=== PATIENT | male | born 1960 | race Caucasian/White ===

== ENCOUNTER 2023-09-01 12:34 | Observation (INO) ==
[2023-09-01 14:37] LABS: BASOPHILS # (AUTO) 0.1 X10^3/uL (0.0-0.1); BASOPHILS % (AUTO) 0.5 % (0.2-1.0); EOSINOPHILS # (AUTO) 0.3 x10^3/uL (0.0-0.2); EOSINOPHILS % (AUTO) 2.4 % (0.9-2.9); HEMOGLOBIN 11.7 g/dL (13.5-18.0); LYMPHOCYTES # (AUTO) 1.5 X10^3/uL (1.3-2.9); LYMPHOCYTES % (AUTO) 13.6 % (21.0-51.0); MEAN CORPUSCULAR HEMOGLOBIN 31.3 pg (27.0-34.0); MEAN CORPUSCULAR HGB CONC 34.3 g/dL (33.0-35.0); MEAN CORPUSCULAR VOLUME 91.1 fL (80.0-100.0); MEAN PLATELET VOLUME 8.4 fL (7.4-11.0); MONOCYTES # (AUTO) 0.9 x10^3/uL (0.3-0.8); MONOCYTES % (AUTO) 7.6 % (0.0-13.0); NEUTROPHILS # (AUTO) 8.6 x10^3/uL (2.2-4.8); NEUTROPHILS % (AUTO) 75.9 % (42.0-75.0); PLATELET COUNT 325 X10^3/uL (150.0-450.0); RED BLOOD COUNT 3.73 X10^6/uL (4.7-6.0); RED CELL DISTRIBUTION WIDTH 12.6 % (11.6-16.5); WHITE BLOOD COUNT 11.3 X10^3/uL (3.6-10.0)
[2023-09-01 14:53] LABS: ALANINE AMINOTRANSFERASE 15 Units/L (12-78); ALKALINE PHOSPHATASE 116 Units/L (46-116); ASPARTATE AMINO TRANSFERASE 13 Units/L (15-37); BLOOD UREA NITROGEN 12 mg/dL (7-18); CALCIUM 8.8 mg/dL (8.5-10.1); CHLORIDE 100 mmol/L (98-107); COR CA(FOR HYPOALB) 9.6 mg/dL (8.5-10.1); CREATININE 1.19 mg/dL (0.70-1.30); GLUCOSE 93 mg/dL (65-99); HEMOGLOBIN A1C 7.2 %; POTASSIUM 4.6 mmol/L (3.5-5.1); SODIUM 137 mmol/L (136-145); TOTAL PROTEIN 7.1 g/dL (6.4-8.2); eGFR NON BLACK RACES > 60 (>60)
[2023-09-01] MEDS: LR 1,000 ML IV 1,000 ML IV SCH (15:11)
[2023-09-01] MEDS: VANCOMYCIN IV *PREMIX 1 G/200 ML BAG 1 G/200 ML PIGGYBACK IV ONE (15:12)
[2023-09-01] MEDS: ZOSYN VIAL 3.375 GRAMS 3.375 G in NS 100 ML IV 100 ML IV SCH (15:20)
[2023-09-01 17:04] VITALS: BMI 23.3
[2023-09-01] MEDS: CORTEF PO SCH (18:31)
[2023-09-01] MEDS: VANCOMYCIN IV *PREMIX 1 G/200 ML BAG 1 G/200 ML PIGGYBACK IV SCH (21:18)
[2023-09-01] MEDS: HIBICLENS WASH EXT ONE (21:21)
--- NOTE | 2023-09-01 22:29 | EKG ---
Test Reason : surgery Blood Pressure : */* mmHG Vent. Rate : 64 BPM Atrial Rate : 64 BPM P-R Int : 206 ms QRS Dur : 74 ms QT Int : 402 ms P-R-T Axes : 62 45 53 degrees QTc Int : 414 ms Normal sinus rhythm with first degree AV block o/w normal No previous ECGs available Confirmed by Anson Holder MD ([id number]) on 09/02/2023 7:32:13 AM Referred By: Confirmed By: Anson Holder MD
[2023-09-01] MEDS: NS 250 ML IV 25 ML IV PRN (22:33)
[2023-09-02 05:49] LABS: BASOPHILS # (AUTO) 0.1 X10^3/uL (0.0-0.1); BASOPHILS % (AUTO) 0.8 % (0.2-1.0); EOSINOPHILS # (AUTO) 0.3 x10^3/uL (0.0-0.2); EOSINOPHILS % (AUTO) 4.6 % (0.9-2.9); HEMATOCRIT 30.1 % (42.0-54.0); HEMOGLOBIN 10.5 g/dL (13.5-18.0); LYMPHOCYTES # (AUTO) 1.4 X10^3/uL (1.3-2.9); MEAN CORPUSCULAR HEMOGLOBIN 31.5 pg (27.0-34.0); MEAN CORPUSCULAR HGB CONC 34.8 g/dL (33.0-35.0); MEAN CORPUSCULAR VOLUME 90.6 fL (80.0-100.0); MEAN PLATELET VOLUME 8.4 fL (7.4-11.0); MONOCYTES # (AUTO) 0.7 x10^3/uL (0.3-0.8); MONOCYTES % (AUTO) 9.2 % (0.0-13.0); NEUTROPHILS % (AUTO) 66.4 % (42.0-75.0); PLATELET COUNT 276 X10^3/uL (150.0-450.0); RED BLOOD COUNT 3.32 X10^6/uL (4.7-6.0); RED CELL DISTRIBUTION WIDTH 12.3 % (11.6-16.5); WHITE BLOOD COUNT 7.5 X10^3/uL (3.6-10.0)
[2023-09-02 05:54] LABS: ALANINE AMINOTRANSFERASE 12 Units/L (12-78); ALBUMIN 2.3 g/dL (3.4-5.0); ALKALINE PHOSPHATASE 97 Units/L (46-116); ASPARTATE AMINO TRANSFERASE 11 Units/L (15-37); BLOOD UREA NITROGEN 10 mg/dL (7-18); CALCIUM 8.2 mg/dL (8.5-10.1); CARBON DIOXIDE 29.6 mmol/L (21-32); CHLORIDE 103 mmol/L (98-107); COR CA(FOR HYPOALB) 9.6 mg/dL (8.5-10.1); COR NA(FOR HYPERGLY) 140 mmol/L (136-145); CREATININE 1.13 mg/dL (0.70-1.30); GLUCOSE 140 mg/dL (65-99); POTASSIUM 4.3 mmol/L (3.5-5.1); SODIUM 139 mmol/L (136-145); eGFR NON BLACK RACES > 60 (>60)
--- NOTE | 2023-09-02 06:57 | VAS ---
EXAM:LOWER EXT ARTERIALHISTORY:ULCER RT FOOT, PVD; -COMPARISON:None.TECHNIQUE:Multiple lópez scale and color flow Doppler images of the right and left lower extremity arterial system were obtained. Interrogation of the common femoral artery, superficial femoral artery, popliteal artery, and tibial arteries was performed.FINDINGS:Multiphasic waveforms predominate throughout the left lower extremity. In the right lower extremity biphasic waveforms are seen above the knee transitioning to monophasic waveforms [id number]. Monophasic waveforms are more typically associated with peripheral vascular diseaseRight extremity:Common femoral : 156 cm/sSuperficial femoral proximal: 113 cm/sSuperficial femoral mid: 111 cm/sSuperficial femoral distal : 112 cm/sPopliteal : 113 cm/sPosterior tibial : 99-131 cm/sAnterior tibial/dorsalis pedis: 86 cm/sLeft extremity:Common femoral : 88 cm/sSuperficial femoral proximal: 35 cm/sSuperficial femoral mid: 98 cm/sSuperficial femoral distal :93 cm/sPopliteal : 84 cm/sPosterior tibial : 72-91 cm/sAnterior tibial/dorsalis pedis: 53 cm/sIMPRESSION:Abnormal monophasic waveforms of the right lower leg typical of peripheral vascular disease. No occluded segments or flow-limiting high-grade stenosis identified with respect to the right leg. Mildly elevated flow velocities of the common femoral artery may indicate regional stenosis of moderate severity.Multiphasic waveform pattern of the left lower extremity with no flow-limiting stenosis or occluded segments identifiedTHIS IS AN ELECTRONICALLY VERIFIED FINAL REPORT09/02/2023 6:54 AM - Electronically signed by Jesus Hernandez MD
--- NOTE | 2023-09-02 07:17 | RAD ---
EXAM:Portable AP chestHISTORY:Preop diabetic footCOMPARISON:NoneFINDINGS:Normal-appea ring heart, lungs, mediastinum and pleural spaces.IMPRESSION:No acute or significant abnormality identified.THIS IS AN ELECTRONICALLY VERIFIED FINAL REPORT09/02/2023 7:14 AM - Electronically signed by Victor M Reinoso MD
--- NOTE | 2023-09-02 07:36 | DR.CONSULT ---
CONSULT Consultation for Day of: Date: 09/02/23 Chief Complaint Chief Complaint: Infection, Right Foot Allergies Allergies Allergy/AdvReac Type Severity Reaction Status Date / Time Quinolones Allergy Verified 09/01/23 14:16 Sulfa (Sulfonamide Allergy Verified 09/01/23 14:16 Antibiotics) [SULFA] History of Present Illness History of Present Illness: Mr. Cummings is a 62 year old M with past medical history of DM, Charcot, and history of partial 5th ray resection to the right foot. He presented to Dr. Carlson's clinic yesterday with history of stepping on a foreign body and subsequently noted increased redness about the right foot. Upon examination there was fluctuance about the red foot concerning for underlying abscess. He was instructed to head to [facility] for admission, IV fluids, antibiotics, and surgical debridement. Past Medical History Past Medical History: Diabetes Additional Medical History: History of Charcot Past Surgical History Additional Surgical History: History of partial fifth ray resection, right foot Social History Does patient currently use any type of tobacco product: No Type of Tobacco Use: Cigars Alcohol Use: None Drug Use: None Medications Home Medications: Quinolones Allergy (Verified 09/01/23 14:16) Sulfa (Sulfonamide Antibiotics) [SULFA] Allergy (Verified 09/01/23 14:16) CONTINUE taking the following medications atorvastatin 10 mg tablet 10 mg PO QDAY 09/01/23 [History] citalopram 20 mg tablet 20 mg PO QDAY 09/01/23 [History] citalopram 20 mg tablet 20 mg PO QDAY 09/01/23 [History] clindamycin HCl 300 mg capsule 300 mg PO Q6HR 09/01/23 [History] dorzolamide 22.3 mg-timolol 6.8 mg/mL eye drops 1 drp ophthalmic (eye) BID 09/01/23 [History] insulin degludec 200 unit/mL (3 mL) subcutaneous pen (Tresiba FlexTouch U-200 insulin) 28 unit subcut HS 09/01/23 [History] latanoprost 0.005 % eye drops 1 drp ophthalmic (eye) HS 09/01/23 [History] levothyroxine 50 mcg tablet 50 mcg PO QDAY 09/01/23 [History] pregabalin 75 mg capsule 75 mg PO TID 09/01/23 [History] Review of Systems Constitutional: See HPI Musculoskeletal: See HPI Skin: See HPI Physical Exam Vital Signs: Vital Signs Temperature 97.9 F Temperature 98.6 F Pulse Rate 56 Pulse Rate 67 Pulse Rate 58 Pulse Rate 53 Pulse Rate 57 Pulse Rate 63 Pulse Rate 63 Respiratory Rate 22 Respiratory Rate 18 Respiratory Rate 17 Respiratory Rate 18 Respiratory Rate 17 Respiratory Rate 14 Respiratory Rate 18 Blood Pressure 107/59 Blood Pressure 117/64 Blood Pressure 105/58 Blood Pressure 95/56 Blood Pressure 105/56 Blood Pressure 113/60 Blood Pressure 114/58 O2 Sat by Pulse Oximetry 99 O2 Sat by Pulse Oximetry 100 O2 Sat by Pulse Oximetry 97 O2 Sat by Pulse Oximetry 98 O2 Sat by Pulse Oximetry 98 O2 Sat by Pulse Oximetry 98 O2 Sat by Pulse Oximetry 99 Musculoskeletal: Right (Examination shows redness about the lateral side of the foot. Previous puncture site on plantar 4th metatarsal head. Fluctuance is noted about the lateral foot concerning for underlying abscess. Pulses are intact. CFT WNL to all digits. Sensation is decreased. ) Plan (1) PAD (peripheral artery disease): Status: Acute Narrative Support Text: Consultation to Dr. Bowers. Reviewed arterial study. Likely order CT angio. (2) Diabetes: Status: Acute Narrative Support Text: Managed by primary. (3) Abscess of right foot: Status: Acute Narrative Support Text: - NPO - Plan for OR this am for incision and drainage of the right foot.
--- NOTE | 2023-09-02 07:46 | CT ---
EXAM: LOWER EXT W/O HISTORY: DIABETIC FOOT; RIGHT ANKLE COMPARISON: None available TECHNIQUE: Multiple CT axial images of the right foot and ankle were obtained without administration of IV contr ast. Sagittal and coronal reformats were performed and reviewed. Dose reduction techniques including Automated Exposure Control (AEC) and adjustment of mA and kV were utilized. FINDINGS: Diffuse ankle and foot subcutaneous edema may represent cellulitis. No subcutaneous gas. Vascular c alcifications are noted. No visible soft tissue ulceration site. Previous resection of 5th ray to t he level of the 5th metatarsal mid shaft. No evidence for an acute fracture. There is chronic fract ure changes involving the proximal 2nd through 4th metatarsal shafts with remodeling and remodeling a t the 1st tarsometatarsal articulation with old fracture deformity evident. Small calcaneal spurs. Degenerative changes at the tarsometatarsal articulations. No aggressive osteolysis to suggest osteo myelitis. Dorsal osteophytes at the talonavicular articulation. No evidence for significant ankle j oint effusion. Visualized tendons grossly unremarkable not well assessed. Charcot joint like change s of the tarsometatarsal articulations. IMPRESSION: Diffuse ankle and foot subcutaneous edema may represent cellulitis in the appropriate setting. No ev idence for osteomyelitis, no visible ulceration or subcutaneous gas. Chronic Charcot like changes at the midfoot with old healed metatarsal fractures and previous resection of the 5th metatarsal eviden t.. THIS IS AN ELECTRONICALLY VERIFIED FINAL REPORT 09/02/2023 7:42 AM - Electronically signed by Albino Romano MD
--- NOTE | 2023-09-02 07:58 | CT ---
EXAM:LOWER EXT W/OHISTORY:DIABETIC FOOT; RIGHT FOOTCOMPARISON:None available.TECHNIQUE:Multiple CT axial images of the right foot and ankle were obtained without administration of IV contrast. Sagittal and coronal reformats were performed and reviewed. Dose reduction techniques including Automated Exposure Control (AEC) and adjustment of mA and kV were utilized.FINDINGS:Diffuse ankle and foot subcutaneous edema may represent cellulitis. No subcutaneous gas. Vascular calcifications are noted. No visible soft tissue ulceration site. Previous resection of 5th ray to the level of the 5th metatarsal mid shaft. No evidence for an acute fracture. There is chronic fracture changes involving the proximal 2nd through 4th metatarsal shafts with remodeling and remodeling at the 1st tarsometatarsal articulation with old fracture deformity evident. Small calcaneal spurs. Degenerative changes at the tarsometatarsal articulations. No aggressive osteolysis to suggest osteomyelitis. Dorsal osteophytes at the talonavicular articulation. No evidence for significant ankle joint effusion. Visualized tendons grossly unremarkable not well assessed. Charcot joint like changes of the tarsometatarsal articulations.IMPRESSION:Diffuse ankle and foot subcutaneous edema may represent cellulitis in the appropriate setting. No evidence for osteomyelitis, no visible ulceration or subcutaneous gas. Chronic Charcot like changes at the midfoot with old healed metatarsal fractures and previous resection of the 5th metatarsal evident.THIS IS AN ELECTRONICALLY VERIFIED FINAL REPORT09/02/2023 7:54 AM - Electronically signed by Albino Romano MD
[2023-09-02] MEDS ORDERED: TRESIBA U-100 INSULIN SC SCH (09:00)
[2023-09-02] MEDS: D5 LR 1,000 ML 1,000 ML IV SCH (09:15)
[2023-09-02] MEDS: PHARMACY CONSULT - VANCOMYCIN XX SCH (10:39)
[2023-09-02] MEDS: D50W ABBOJECT SYR IV ONE (10:39)
[2023-09-02] MEDS: ZOSYN VIAL 3.375 GRAMS 3.375 G in NS 100 ML IV 100 ML IV SCH (10:39)
[2023-09-02] MEDS: CORTEF ONE (10:39)
[2023-09-02] MEDS: CORTEF PO SCH (10:40)
[2023-09-02] MEDS: LEXAPRO PO SCH (10:40)
[2023-09-02] MEDS: REGLAN INJ 10 MG VIAL ONE (11:16)
[2023-09-02] MEDS: ZOFRAN INJ 4 MG VIAL ONE (11:16)
[2023-09-02] MEDS ORDERED: KETAMINE HCL ONE (11:16)
[2023-09-02] MEDS ORDERED: XYLOCAINE 2 % (PLAIN) ONE (11:16)
[2023-09-02] MEDS: VERSED ONE (11:16)
[2023-09-02] MEDS: BETADINE SOLN ONE (11:16)
[2023-09-02] MEDS: FENTANYL VIAL INJ 100 mcg ONE (11:16)
[2023-09-02] MEDS: DIPRIVAN VIAL 20 ML ONE (11:26)
[2023-09-02] MEDS: TOBRAMYCIN SULFATE ONE (11:29)
[2023-09-02] MEDS: VANCOMYCIN HCL ONE (11:29)
[2023-09-02] MEDS: MARCAINE 0.25% INJ ONE (11:29)
[2023-09-02] MEDS: TRESIBA U-100 INSULIN SC SCH (11:47)
[2023-09-02] MEDS: PHARMACY COMMENT IV ONE (13:08)
[2023-09-02] MEDS: EPHEDRINE SULFATE INJ ONE (13:08)
[2023-09-02] MEDS ORDERED: OMNIPAQUE 350 mg/mL 50 mL BTL 50 ML ONE ×2 (13:47→14:21)
[2023-09-02] MEDS ORDERED: OMNIPAQUE 350 mg/mL 100 mL BTL 100 ML ONE ×2 (13:47→14:21)
[2023-09-02] MEDS: LR 1,000 ML IV 1,000 ML IV SCH (15:30)
[2023-09-02] MEDS ORDERED: NS 250 ML IV 250 ML IV ONE (16:46)
[2023-09-02] MEDS ORDERED: CORTEF ONE (18:18)
--- NOTE | 2023-09-02 22:59 | CT ---
PROCEDURE: CTA bilateral lower extremity iliofemoral runoff.HISTORY: Diabetes.TECHNIQUE: Axial images were performed through the chest with the administration of IV contrast with multiplanar reformations . 3D and MIPS reconstructions were performed and reviewed. Dose reduction techniques including Automated Exposure Control (AEC) and adjustment of mA and kV were utilized .COMPARISON: Correlated with September 01, 2023.TECHNICAL QUALITY: Satisfactory.FINDINGS:Mild atherosclerosis visualized inferior abdominal aorta.Iliofemoral runoff through the pelvis shows no significant abnormality.Right femoral arteries show no significant abnormality with no significant narrowing or occlusion.Right popliteal artery is unremarkable.Right trifurcation vessels shows some mild narrowing of the peroneal artery in the midportion. No other significant narrowing or occlusion with three-vessel runoff at the ankle.Left femoral arteries show significant narrowing distal left profunda femoral. Superficial femoral artery on the left shows mild atherosclerosis and no significant narrowing or occlusion.Left popliteal artery shows mild atherosclerosis without significant narrowing. Patent trifurcation vessels distally with three-vessel runoff at the ankle.Mild right inguinal lymphadenopathy 2.6 cm.Refer to previous reports done yesterday of both lower extremities for soft tissue and bony findings of the right foot.IMPRESSION:1. Hemodynamically significant stenosis involving distal left profunda femoral.2. No other hemodynamically significant stenosis identified.3. Mild right inguinal lymphadenopathy.THIS IS AN ELECTRONICALLY VERIFIED FINAL REPORT09/02/2023 10:55 PM - Electronically signed by Jesus Martinez MD
[2023-09-03 05:57] VITALS: RESP 18
[2023-09-03 06:32] LABS: BASOPHILS % (AUTO) 0.5 % (0.2-1.0); EOSINOPHILS # (AUTO) 0.3 x10^3/uL (0.0-0.2); EOSINOPHILS % (AUTO) 4.7 % (0.9-2.9); HEMATOCRIT 30.3 % (42.0-54.0); HEMOGLOBIN 10.4 g/dL (13.5-18.0); LYMPHOCYTES # (AUTO) 1.5 X10^3/uL (1.3-2.9); LYMPHOCYTES % (AUTO) 21.9 % (21.0-51.0); MEAN CORPUSCULAR HEMOGLOBIN 31.1 pg (27.0-34.0); MEAN CORPUSCULAR HGB CONC 34.2 g/dL (33.0-35.0); MEAN CORPUSCULAR VOLUME 91.1 fL (80.0-100.0); MEAN PLATELET VOLUME 8.4 fL (7.4-11.0); MONOCYTES # (AUTO) 0.4 x10^3/uL (0.3-0.8); NEUTROPHILS # (AUTO) 4.4 x10^3/uL (2.2-4.8); NEUTROPHILS % (AUTO) 66.9 % (42.0-75.0); PLATELET COUNT 292 X10^3/uL (150.0-450.0); RED BLOOD COUNT 3.33 X10^6/uL (4.7-6.0); RED CELL DISTRIBUTION WIDTH 12.5 % (11.6-16.5); WHITE BLOOD COUNT 6.6 X10^3/uL (3.6-10.0)
[2023-09-03 07:02] LABS: ALANINE AMINOTRANSFERASE 10 Units/L (12-78); ALBUMIN 2.2 g/dL (3.4-5.0); ALKALINE PHOSPHATASE 91 Units/L (46-116); ASPARTATE AMINO TRANSFERASE 10 Units/L (15-37); BLOOD UREA NITROGEN 8 mg/dL (7-18); CALCIUM 8.1 mg/dL (8.5-10.1); CARBON DIOXIDE 30.4 mmol/L (21-32); CHLORIDE 103 mmol/L (98-107); COR CA(FOR HYPOALB) 9.5 mg/dL (8.5-10.1); COR NA(FOR HYPERGLY) 141 mmol/L (136-145); CREATININE 1.08 mg/dL (0.70-1.30); GLUCOSE 186 mg/dL (65-99); POTASSIUM 4.5 mmol/L (3.5-5.1); SODIUM 139 mmol/L (136-145); TOTAL PROTEIN 5.8 g/dL (6.4-8.2); eGFR NON BLACK RACES > 60 (>60)
--- NOTE | 2023-09-03 07:40 | NOTE.SOAP ---
Soap Note Note for Day of Date of Exam: 09/03/23 Subjective Data Subjective Data: Resting in bed. Objective Data Objective Data: Right Lower Extremity Exam: Dressing was taken down. Erythema has drastically decreased compared to prior examinations. Dorsal incision has sutures in place with minimal drainage. Plantar incision has sutures intact with minimal drainage. ABX beads are noted. Swelling has decreased as well. Assessment Assessment: 62M with PAD, DM, Charcot of the right foot, prior partial 5th ray resection who is now POD#1 InD with antibiotic bead placement of the right foot Plan Plan: - NWB to RLE, can bear weight on heel for transfers if needed. - Dr. Bowers is following for possible intervention for PAD. Will follow his recommendations. - Plan to pull beads tomorrow likely. - Will also plan for definitive closure early next week. - OR culture is showing rare GPCs. - Currently on IV Vanc/Zosyn.
[2023-09-03] MEDS ORDERED: CORTEF ONE (08:02)
[2023-09-03] MEDS ORDERED: LEXAPRO ONE (08:02)
[2023-09-03 09:51] VITALS: BP 100/55; PULSE 62; TEMP 97; O2SAT 98
[2023-09-03] MEDS ORDERED: TRESIBA U-100 INSULIN SC SCH (21:00)
--- NOTE | 2023-09-04 14:38 | PCM.DCPLAN ---
DISCHARGE SUMMARY Admission Date Date of Admission: 09/01/23 Discharge Date Discharge Date: 09/03/23 Admission Diagnoses (1) PAD (peripheral artery disease): Status: Acute (2) Diabetes: Status: Acute (3) Abscess of right foot: Status: Acute Discharge Medications Discharge Medications: Home Medication List atorvastatin 10 mg tablet 10 mg PO QDAY 09/01/23 [History] citalopram 20 mg tablet 20 mg PO QDAY 09/01/23 [History] citalopram 20 mg tablet 20 mg PO QDAY 09/01/23 [History] clindamycin HCl 300 mg capsule 300 mg PO Q6HR 09/01/23 [History] dorzolamide 22.3 mg-timolol 6.8 mg/mL eye drops 1 drp ophthalmic (eye) BID 09/01/23 [History] insulin degludec 200 unit/mL (3 mL) subcutaneous pen (Tresiba FlexTouch U-200 insulin) 28 unit subcut HS 09/01/23 [History] latanoprost 0.005 % eye drops 1 drp ophthalmic (eye) HS 09/01/23 [History] levothyroxine 50 mcg tablet 50 mcg PO QDAY 09/01/23 [History] pregabalin 75 mg capsule 75 mg PO TID 09/01/23 [History] ciprofloxacin HCl 500 mg tablet (Cipro) 500 mg PO Q12H 7 days #14 tabs 09/03/23 [Rx] clindamycin HCl 300 mg capsule 300 mg PO Q8H 7 days #21 caps 09/03/23 [Rx] Prescriptions: ciprofloxacin HCl [Cipro] Brant Carlson clindamycin HCl [facility] Vital Signs: Vital Signs Temperature 97 F Pulse Rate [Left Radial] 62 Respiratory Rate 18 Blood Pressure [Right Arm] 100/55 O2 Sat by Pulse Oximetry 98 Latest Lab Results: Laboratory Last Values WBC 6.6 X10^3/uL (3.6-10.0) 09/03/23 05:57 RBC 3.33 X10^6/uL (4.7-6.0) L 09/03/23 05:57 Hgb 10.4 g/dL (13.5-18.0) L 09/03/23 05:57 Hct 30.3 % (42.0-54.0) L 09/03/23 05:57 MCV 91.1 fL (80.0-100.0) 09/03/23 05:57 MCH 31.1 pg (27.0-34.0) 09/03/23 05:57 MCHC 34.2 g/dL (33.0-35.0) 09/03/23 05:57 RDW 12.5 % (11.6-16.5) 09/03/23 05:57 Plt Count 292 X10^3/uL (150.0-450.0) 09/03/23 05:57 MPV 8.4 fL (7.4-11.0) 09/03/23 05:57 Neut % (Auto) 66.9 % (42.0-75.0) 09/03/23 05:57 Lymph % (Auto) 21.9 % (21.0-51.0) 09/03/23 05:57 Harmon % (Auto) 6.0 % (0.0-13.0) 09/03/23 05:57 Eos % (Auto) 4.7 % (0.9-2.9) H 09/03/23 05:57 Baso % (Auto) 0.5 % (0.2-1.0) 09/03/23 05:57 Neut # (Auto) 4.4 x10^3/uL (2.2-4.8) 09/03/23 05:57 Lymph # (Auto) 1.5 X10^3/uL (1.3-2.9) 09/03/23 05:57 Harmon # (Auto) 0.4 x10^3/uL (0.3-0.8) 09/03/23 05:57 Eos # (Auto) 0.3 x10^3/uL (0.0-0.2) H 09/03/23 05:57 Baso # (Auto) 0.0 X10^3/uL (0.0-0.1) 09/03/23 05:57 Absolute Nucleated RBC 0.0 /100WBC 09/03/23 05:57 Sodium 139 mmol/L (136-145) 09/03/23 05:57 Corrected Sodium 141 mmol/L (136-145) 09/03/23 05:57 Potassium 4.5 mmol/L (3.5-5.1) 09/03/23 05:57 Chloride 103 mmol/L (98-107) 09/03/23 05:57 Carbon Dioxide 30.4 mmol/L (21-32) 09/03/23 05:57 BUN 8 mg/dL (7-18) 09/03/23 05:57 Creatinine 1.08 mg/dL (0.70-1.30) 09/03/23 05:57 Est GFR (MDRD) Af Amer > 60 (>60) 09/03/23 05:57 Est GFR (MDRD) Non-Af > 60 (>60) 09/03/23 05:57 Glucose 186 mg/dL (65-99) H 09/03/23 05:57 POC Glucose (mg/dL) 165 mg/dL (65-99) H 09/02/23 12:01 Hemoglobin A1c 7.2 % 09/01/23 14:10 Lactic Acid 0.8 mmol/L (0.4-2.0) 09/01/23 14:22 Calcium 8.1 mg/dL (8.5-10.1) L 09/03/23 05:57 Corrected Calcium 9.5 mg/dL (8.5-10.1) 09/03/23 05:57 Total Bilirubin 0.30 mg/dL (0.2-1.0) 09/03/23 05:57 AST 10 Units/L (15-37) L 09/03/23 05:57 ALT 10 Units/L (12-78) L 09/03/23 05:57 Alkaline Phosphatase 91 Units/L (46-116) 09/03/23 05:57 Total Protein 5.8 g/dL (6.4-8.2) L 09/03/23 05:57 Albumin 2.2 g/dL (3.4-5.0) L 09/03/23 05:57 Globulin 3.6 g/dL (2.5-4.5) 09/03/23 05:57 Albumin/Globulin Ratio 0.6 Ratio (1.1-2.1) L 09/03/23 05:57 Random Vancomycin 17.8 ug/mL 09/02/23 13:15 Hospital Course: Patient admitted after presenting to podiatry office. He was admitted for IV fluids, IV antibiotics, and debridement. Podiatry did take him to the OR during his stay here and has given him postop instructions. He has done well during his stay and is now ready for discharge. He is being discharged home in improved, stable condition with plans to follow-up with podiatry and his PCP as an outpatient. Medication sent to his pharmacy.
[2023-09-05 07:11] LABS: ZINC PLASMA 53.8 ug/dL (60.0-120.0)
== END 2023-09-03 11:45 | disposition home or self-care (01) ==
LOC: MED/SURG → OBSVTOIN 13:21 → INTOOBSV 13:21 → ICU 13:51 → MED/SURG 09-02 15:09 → UNDODISIN 09-03 11:45
PROVIDERS: ADMIT Obstetrics & Gynecology Obstetrics; ATTEND Obstetrics & Gynecology Obstetrics
PROC: DEBRIDE (2023-09-02 11:45)
DX: Z01.811 Encounter for preprocedural respiratory examination; B95.7 Other staphylococcus as the cause of diseases classified elsewhere; I73.89 Other specified peripheral vascular diseases; Z01.810 Encounter for preprocedural cardiovascular examination; L02.611 Cutaneous abscess of right foot; Z89.421 Acquired absence of other right toe(s); E11.65 Type 2 diabetes mellitus with hyperglycemia